=== PATIENT | male | born 1960 | race Caucasian/White ===

== ENCOUNTER 2018-01-19 08:13 | Day surgery (SDC) | payer OTHER ==
[~2018-01-19] VITALS: Ht 198.1 cm; Wt 106.2 kg
[~2018-01-19 08:13] MED LIST: AMLO10; ASPI81CH; HYDCHL12.5; LANS30EC PO; LEVSOD100 PO; LISI5 PO; PRAV20; STATIN MED
== END 2018-01-19 10:18 | disposition home or self-care (01) ==
LOC: ORSCSDS 08:13
PROVIDERS: Internal Medicine Gastroenterology
PROC: 0DBK8ZX Excision of Ascending Colon, Via Natural or Artificial Opening Endoscopic, Diagnostic (ICD-10-PCS; principal; 2018-01-19 09:30)
PROC: 0DBM8ZX Excision of Descending Colon, Via Natural or Artificial Opening Endoscopic, Diagnostic (ICD-10-PCS; principal; 2018-01-19 09:30)
PROC: 0DBH8ZX Excision of Cecum, Via Natural or Artificial Opening Endoscopic, Diagnostic (ICD-10-PCS; principal; 2018-01-19 09:30)
DX: Z12.11 Encounter for screening for malignant neoplasm of colon (principal); D12.0 Benign neoplasm of cecum; D12.2 Benign neoplasm of ascending colon; D12.4 Benign neoplasm of descending colon; K64.8 Other hemorrhoids; I10 Essential (primary) hypertension; E78.5 Hyperlipidemia, unspecified; E03.9 Hypothyroidism, unspecified; G47.33 Obstructive sleep apnea (adult) (pediatric); K21.9 Gastro-esophageal reflux disease without esophagitis; Z79.82 Long term (current) use of aspirin; Z79.899 Other long term (current) drug therapy
CPT/HCPCS: 88305; J2250; J7120

== ENCOUNTER 2021-03-26 10:15 | Day surgery (SDC) | payer BC ==
[~2021-03-26] VITALS: Ht 167.6 cm; Wt 99.6 kg
[~2021-03-26 10:15] MED LIST changes: +ALLO300 PO; +AMLO10 PO; +Aspirin EC81 MG PO; +COLCHICINE0.6 MG PO; +FISH OIL 1,2001 EAC7 PO; +Fenofibrate200 MG PO; +INDO50 PO; +LEVOTHYROXINE PO; +METF500 PO; +PRAVASTATIN SOD40 MG PO; +ZESTRIL40 M1 PO
== END 2021-03-26 12:20 | disposition home or self-care (01) ==
LOC: ORSCSDS 10:15
PROVIDERS: Internal Medicine Gastroenterology
PROC: 0DBM8ZX Excision of Descending Colon, Via Natural or Artificial Opening Endoscopic, Diagnostic (ICD-10-PCS; principal; 2021-03-26 11:30)
DX: Z12.11 Encounter for screening for malignant neoplasm of colon (principal); Z86.010 Personal history of colon polyps; D12.4 Benign neoplasm of descending colon; K64.8 Other hemorrhoids; G47.33 Obstructive sleep apnea (adult) (pediatric); I10 Essential (primary) hypertension; E78.5 Hyperlipidemia, unspecified; E11.9 Type 2 diabetes mellitus without complications; E03.9 Hypothyroidism, unspecified; K21.9 Gastro-esophageal reflux disease without esophagitis; E66.9 Obesity, unspecified; Z68.37 Body mass index [BMI] 37.0-37.9, adult; Z79.899 Other long term (current) drug therapy
CPT/HCPCS: 82947; 88305; J2704; J7120

== ENCOUNTER 2023-05-02 13:16 | Emergency (ER) | payer OTHER, BC ==
[~2023-05-02] VITALS: Ht 167.6 cm; Wt 98.9 kg
[2023-05-02] MEDS ORDERED: HYDR1TAB94 PO ×2 (16:15→18:29)
[2023-05-02] MEDS ORDERED: IBUP800 PO (16:15)
[2023-05-02 20:16] VITALS: BP 158/70
[2023-05-02] MEDS ORDERED: ONDA4 PO (20:53)
[2023-05-02] MEDS ORDERED: EUTHYROX88 MC1 PO (21:06)
== END 2023-05-02 21:02 | disposition home or self-care (01) ==
LOC: ER 13:16
DX: S76.812A Strain of other specified muscles, fascia and tendons at thigh level, left thigh, initial encounter (principal); W01.0XXA Fall on same level from slipping, tripping and stumbling without subsequent striking against object, initial encounter; Y92.89 Other specified places as the place of occurrence of the external cause; Y99.0 Civilian activity done for income or pay; Z88.8 Allergy status to other drugs, medicaments and biological substances; Z79.890 Hormone replacement therapy; Z79.82 Long term (current) use of aspirin; Z79.84 Long term (current) use of oral hypoglycemic drugs; Z79.899 Other long term (current) drug therapy; I10 Essential (primary) hypertension; E03.9 Hypothyroidism, unspecified
CPT/HCPCS: 73718; 76882; 99284-25; A9270